=== PATIENT | female | born 1985 | race Caucasian/White ===

== ENCOUNTER 2021-09-19 18:13 | Emergency (ER) | payer OTHER ==
[~2021-09-19] VITALS: Ht 160 cm; Wt 77.6 kg
[2021-09-19 18:25] VITALS: BP 142/88
--- NOTE | 2021-09-19 19:19 | NUR ---
PT AMBULATED TO BED 10.
[2021-09-19] MEDS ORDERED: LIDOCAINE MPF 1% 10 MG/ML VIAL INJ ONE (19:20)
[2021-09-19] MEDS ORDERED: SULF-59 PO (19:54)
[2021-09-19] MEDS ORDERED: ACET-8386 PO (19:54)
[2021-09-19 20:10] VITALS: BP 140/86
--- NOTE | 2021-09-19 20:10 | NUR ---
Patient discharged with v/s stable. Written and verbal after care instructions given and explained. Patient alert, oriented and verbalized understanding of instructions. Ambulatory with steady gait. All questions addressed prior to discharge. ID band removed. Patient advised to follow up with PMD. Rx of hydrocodon- acetametaphen 5-325 and bactrim given. Opportunity to ask questions provided and answered.
== END 2021-09-19 20:10 | disposition home or self-care (01) ==
LOC: MED 18:13
DX: L02.91 Cutaneous abscess, unspecified (principal); E11.9 Type 2 diabetes mellitus without complications; Z79.899 Other long term (current) drug therapy
CPT/HCPCS: 10060; 99283; J2001

== ENCOUNTER 2021-10-19 08:53 | Emergency (ER) | payer OTHER ==
[~2021-10-19] VITALS: Ht 160 cm; Wt 75.5 kg
[~2021-10-19 08:53] MED LIST: ACET-8386 PO; SULF-59 PO
[2021-10-19 08:55] VITALS: BP 127/96
[2021-10-19] MEDS: LIDOCAINE MPF 1% 10 MG/ML VIAL INJ ONE (09:39)
[2021-10-19] MEDS ORDERED: NAPR-1704 PO (10:07)
[2021-10-19] MEDS ORDERED: CEPH-588 PO (10:07)
== END 2021-10-19 10:24 | disposition home or self-care (01) ==
LOC: MED 08:53
DX: H60.11 Cellulitis of right external ear (principal); H60.01 Abscess of right external ear; E11.9 Type 2 diabetes mellitus without complications; Z79.1 Long term (current) use of non-steroidal anti-inflammatories (NSAID); Z79.2 Long term (current) use of antibiotics; Z79.891 Long term (current) use of opiate analgesic
CPT/HCPCS: 10061; 82948; 99284; J2001

== ENCOUNTER 2021-11-30 14:46 | Emergency (ER) | payer OTHER ==
[~2021-11-30] VITALS: Ht 160 cm; Wt 77.1 kg
[~2021-11-30 14:46] MED LIST changes: +CEPH-588 PO; +NAPR-1704 PO
[2021-11-30 15:04] VITALS: BP 126/88
--- NOTE | 2021-11-30 15:28 | NUR ---
Patient ambulated to bed 8
[2021-11-30] MEDS ORDERED: BLOOD GLUCOSE MONITORING 1 DEV DEV FS ONE (15:55)
[2021-11-30] MEDS ORDERED: NACL 0.9% 1,000 ML IV ONE (15:55)
--- NOTE | 2021-11-30 15:56 | NUR ---
Dr. Mooney evaluating patient at bedside.
--- NOTE | 2021-11-30 15:59 | NUR ---
36 y/o female bib self for vaginal bleeding x today. Patient took a home test and it is positive. Patient is unsure dates when last menstrual cycle were. Patient denies any SOB, Chest Pain, Nausea or Vomiting. Medical History: DM, HTN Medications: METFORMIN, GLIPISIDE, ENALOPRIL NKDA
[2021-11-30 16:25] LABS: BASOPHILS % (AUTO) 0.4 % (0.0-2.0); EOSINOPHILS % (AUTO) 0.5 % (0.0-4.0); HEMATOCRIT 43.4 % (36-48); HEMOGLOBIN 14.8 g/dL (12.0-16.0); LYMPHOCYTES # (AUTO) 2.3 K/uL (2.5-16.5); LYMPHOCYTES % (AUTO) 23.7 % (20.5-51.1); MEAN CORPUSCULAR HEMOGLOBIN 30 pg (27-31); MEAN CORPUSCULAR HGB CONC 34 g/dL (33-37); MEAN CORPUSCULAR VOLUME 87.6 fL (80-94); MONOCYTES # (AUTO) 0.5 K/uL (0.8-1.0); MONOCYTES % (AUTO) 5.1 % (1.7-9.3); NEUTROPHILS % (AUTO) 70.3 % (42.2-75.2); PLATELET COUNT (AUTO) 307 K/uL (140-450); RED BLOOD CELL COUNT(AUTO) 4.95 MIL/uL (4.20-5.40); RED CELL DISTRIBUTION WIDTH 13.4 % (11.6-13.7); WHITE BLOOD COUNT (AUTO) 9.9 K/uL (4.8-10.8)
--- NOTE | 2021-11-30 16:34 | NUR ---
US AT BEDSIDE
[2021-11-30 16:52] LABS: ALBUMIN 3.5 g/dL (3.4-5.0); ANION GAP 11.3 (8-16); CARBON DIOXIDE 24.2 mmol/L (21-32); CREATININE 0.6 mg/dL (0.6-1.3); POTASSIUM 3.5 mmol/L (3.5-5.1); TOTAL BILIRUBIN 0.4 mg/dL (0.0-1.0)
[2021-11-30 17:55] VITALS: BP 128/79
--- NOTE | 2021-11-30 17:55 | NUR ---
Patient discharged with v/s stable. Written and verbal after care instructions given. Patient verbalized understanding. Ambulatory with steady gait. All questions addressed prior to discharge. Advised to follow up with PMD.
--- NOTE | 2021-11-30 17:56 | NUR ---
The patient's care was reviewed and supervised by Antionette Moulton RN.
[2021-11-30 21:46] LABS: BILIRUBIN,URINE NEGATIVE (NEGATIVE); BLOOD, URINE 3+ (NEGATIVE); COLOR,URINE YELLOW (YELLOW); LEUKOCYTE ESTERASE ,URINE 1+ (NEGATIVE); NITRITE, URINE NEGATIVE (NEGATIVE); UGLUCOSE 3+ (NEGATIVE)
[2021-11-30 22:01] LABS: APPEARANCE,URINE HAZY (CLEAR)
[2021-11-30 22:09] LABS: RBC,URINE 20-50 /HPF (0-5); WBC,URINE 16-25 (MOD) /HPF (0-5)
== END 2021-11-30 17:55 | disposition home or self-care (01) ==
LOC: MED 14:46
DX: O20.0 Threatened abortion (principal); O24.911 Unspecified diabetes mellitus in pregnancy, first trimester; I10 Essential (primary) hypertension; Z3A.08 8 weeks gestation of pregnancy; Z98.890 Other specified postprocedural states
CPT/HCPCS: 36415; 76817; 80053; 81001; 81025; 82948; 83690; 84702; 85025; 86900; 86901; 87086; 96360; 99284; J7030; Q0092; 81002